=== PATIENT | male | born 1965 | race African-American/Black ===

== ENCOUNTER → 2018-01-17 | Outpatient (CLI) | payer OTHER ==
[~2018-01-17] MED LIST: BUPIVACAINE MPF 0.25% 10 ML VIAL. ONE; IOHEXOL 180 MG/ML 10 ML VIAL. ONE; METO50TA6 PO; NAPR-514 PO; PRED2.5T PO; TRIA1CAP3 PO; methylPREDNISolone ACETATE 80 MG/ML VIAL. ONE
--- NOTE | 2018-01-17 18:34 | PAIN ---
DATE OF SERVICE: 01/17/2018 INITIAL CONSULTATION FOR PAIN CLINIC CHIEF COMPLAINT: Left knee pain. HISTORY OF PRESENT ILLNESS: This is a 52-year-old male who presents with history of pain for about 3 years, increasing with walking, standing and changing positions. The patient reports he had an injection in his knee about a year ago, which helped significantly almost for a year. The patient reports he has a history of torn meniscus and has had bilateral knee scopes in the past, which were helpful as well. The patient reports the pain is worse with standing, walking and changing position, especially with standing from a chair or stepping up a stair or on a curb with putting all his weight on his left knee. The patient reports it awakens him from sleep about twice at night when he turns over or rolls on to his left side. It does not affect his bowel or bladder control, but does affect his ability to walk significantly. He is not using any assistive devices; however, the patient has tried physical therapy in the past as well as doing exercises on his own and injections in the knee, which have helped significantly. The patient reports the pain is not constant. Describes as aching and sometimes sharp, stabbing and throbbing in the left knee, again with weightbearing and sitting down. The pain is almost completely relieved, though he is lying down and twist his knee and the pain returns, sometimes sharp and shooting and electrical and stabbing at times. The patient rates his disability rating from 0-10, 10 being the worst, is a 5 with family and home responsibilities and social activity and self-care, 10 with recreational activities, 7 with occupation, 4 with sexual behavior, 2 with life support activities. The patient did have plain films, which showed no acute changes on his knee with only some mild osteoarthritis noted. The patient reports no loss of motor function, but significant fatigability with the left leg when he is walking secondary to the pain, especially on the hill or stairs. PAST MEDICAL HISTORY: Significant for hypertension, arthritis, and cigarette smoking, quit 5 years ago. PREVIOUS SURGERIES: Include bilateral knee scopes, nasal reconstruction, right shoulder surgery, right Achilles tendon repair. CURRENT MEDICATIONS: Include prednisone 5 mg daily, Naprosyn, metoprolol and hydrochlorothiazide. ALLERGIES: The patient has no known drug allergies. FAMILY HISTORY: Significant for cancers. SOCIAL HISTORY: The patient drinks alcohol about 6 beers a week on average. Does not smoke, quit 5 years ago. Does not use any illegal, illicit or recreational drugs. He is single. Lives locally in [place], [place]. REVIEW OF SYSTEMS: The patient's review of systems is positive for those items mentioned in history of present illness. All systems reviewed and otherwise negative. It is complete, full and well documented on the patient's chart. PHYSICAL EXAMINATION: VITAL SIGNS: The patient's blood pressure is 140/86, pulse 59, respirations 18, temperature 98.5 degrees Fahrenheit, height is 6 feet, weight is 282 pounds. GENERAL: The patient is awake, alert, oriented, appropriate, very pleasant demeanor. HEENT: Head shows normocephalic, atraumatic. Extraocular movements are intact and symmetrical. Oral cavity: Mucous membranes are moist and pink. Dentition is intact. NECK: Shows anterior throat supple without palpable lymphadenopathy noted. Swallow reflex is symmetrical. CHEST: Shows normal on inspection. Breath sounds are clear to auscultation bilaterally. HEART: Shows S1, S2 clear. No murmurs auscultated. ABDOMEN: Soft, nontender, nondistended. No palpable organomegaly is noted. No rebound or guarding demonstrated. BACK: Shows spine grossly in the midline. Normal appearing thoracic kyphosis and lumbar lordotic curvature. Lumbar paraspinous muscle shows symmetrical on inspection and nontender to palpation. The patient has full rotational motion of lumbar spine as well as the thoracic spine and cervical spine, both laterally as well as extension and flexion without difficulty or pain reported. No tenderness over the sacrum or sacroiliac regions. EXTREMITIES: The patient's lower extremities show deep tendon reflexes 2+ in the patellar and tendo calcaneus tendons are 1+. Motor exam is strong with 5/5 dorsiflexion, extension, quadriceps and hamstring flexion and equal bilaterally. Peripheral pulses are 1+ posterior tibia. No peripheral edema is noted. The patient's left knee and right knee shows some previous endoscopic surgical scars, but no abnormalities, no obvious swelling left knee compared to right knee, mildly tender in the medial collateral ligament with palpation directly, but not on the lateral aspect. No tenderness over the patellar tendon. Patella is mobile and nontender with palpation. No shelf sign. Range of motion is full without crepitus or ratcheting and without significant pain with passive motion. Right side remains nontender as well and normal exam on the right knee. The patient is able to stand, stand on his toes without difficulty or loss of balance, even a few steps walking, the patient does report some mild pain in the left knee. SKIN: Shows warm and dry. Good turgor. No edema. No sores, rashes or bruising. IMPRESSION: 1. This is a 52-year-old male with approximate 3 year history of left knee pain with history of meniscal tear. 2. Osteoarthritis. 3. Hypertension. PLAN: Options were discussed with the patient including conservative medical management, physical therapies, and interventional techniques. He would like to pursue interventional techniques as he has done well with these in the past. Risks were discussed. We discussed an intraarticular knee joint injection. Risks were discussed including but not limited to bleeding, infection, possibility of intravascular injection sequelae, spread of local anesthetic and numbness, side effects of steroid medication as well as exposure to fluoroscopy and poor results regarding pain control. The patient understands and wished to proceed. The patient will return to the clinic in approximately 1 month or as necessary, was counseled as to activity level as well as followup and side effects to be aware of. DIAGNOSES: Left knee joint pain with primary osteoarthritis, left knee joint and meniscal tear, left knee joint. PROCEDURE: Intra-articular left knee joint injection using C-arm fluoroscopic guidance under sterile prep and drape using local anesthetic. MEDICATION INJECTED: A total of 80 mg of Depo-Medrol plus 3 mL of 0.25% bupivacaine and 2 mL of Isovue for contrast. CONDITION AT DISCHARGE: Stable. The patient tolerated the procedure well, had no complications. KESHIA BARRIENTOS MD DR: HERACLIO/igor JOB#: [id number] / [id number]
== END | disposition home or self-care (01) ==
LOC: PNCL 12:44
PROVIDERS: ATTEND Anesthesiology
DX: M17.12 Unilateral primary osteoarthritis, left knee (principal); I10 Essential (primary) hypertension; Z87.891 Personal history of nicotine dependence; Z98.890 Other specified postprocedural states; Z79.899 Other long term (current) drug therapy; Z72.89 Other problems related to lifestyle
CPT/HCPCS: 20610; 77002; J1040; J3490; Q9965

== ENCOUNTER → 2018-03-26 | Outpatient (CLI) | payer OTHER ==
--- NOTE | 2018-03-26 10:32 | PAIN ---
DATE OF SERVICE: 03/26/2018 PROGRESS NOTE FOR PAIN CLINIC DIAGNOSES: Left knee joint pain with primary osteoarthritis, left knee joint. HISTORY OF PRESENT ILLNESS: The patient is a 52-year-old male who returns for followup status post left knee joint injections, last seen 01/17/2018. The patient did very well with at least 50% or better improvement in his knee pain with walking, standing, change in positions and has been increasing his activity with greater ease and comfort, so he is doing more activities home activities, walking and traveling better. The patient reports it is aching and sharp, now returning, mostly in the medial aspect of the left knee. The patient reports it is a 2 on a scale of 10 at its worst, average and at its least and is a 2 today. The patient reports no new motor or sensory deficits or other complaints. PHYSICAL EXAMINATION: VITAL SIGNS: The patient's blood pressure 123/80, pulse 72, respirations 18 and temperature 98.8 degrees Fahrenheit. Weight is 283 pounds. GENERAL: The patient is awake, alert, oriented, appropriate and very pleasant demeanor. HEENT: Head shows normocephalic and atraumatic. Extraocular movements are intact and symmetrical. Oral cavity: Mucous membranes moist and pink. Dentition is intact. NECK: Shows anterior throat supple without palpable lymphadenopathy noted. Swallow reflex is symmetrical. CHEST: Shows normal on inspection. Breath sounds are clear to auscultation bilaterally. HEART: Shows S1 and S2 clear. No murmurs auscultated. ABDOMEN: Soft, nontender and nondistended. No palpable organomegaly is noted. No rebound or guarding demonstrated. BACK: Shows spine grossly in the midline. Normal appearing thoracic kyphosis and lumbar lordotic curvature. The patient's lower extremities show deep tendon reflexes 2+ in the patellar and 1+ tendo-calcaneus tendons are equal. Motor exam is strong with 5/5 dorsiflexion, extension, quadriceps and hamstring flexion. The patient's left knee shows good mobility of the patella without significant pain. No shelf sign. No ratcheting with good rotational motion in hinged fashion on the left knee without crepitus or ratcheting or significant pain with passive motion. Peripheral pulses are 1+ posterior tibia. No peripheral edema is noted in bilateral lower extremities. Options were discussed with the patient. The patient's old chart was reviewed as well as his current medication regimen updated. Current review of systems updated today as well and we will proceed with a second intraarticular knee joint injection on the left knee today with fluoroscopic guidance. Risks were again discussed including, but not limited to bleeding, infection, possibility of intravascular injection sequelae, spread of local anesthetic and numbness, side effects of steroid medication, exposure to fluoroscopy and poor results regarding pain control. The patient understands and wished to proceed. The patient will return to the clinic in approximately 2 weeks for followup, was counseled as to return appointment, activity level and side effects to be aware of. DIAGNOSIS: Primary osteoarthritis, left knee joint with left knee joint pain. PROCEDURES: Left intra-articular knee joint injection using C-arm fluoroscopic guidance under sterile prep and drape using local anesthetic. MEDICATION INJECTED: A total of 80 mg of Depo-Medrol plus 3 mL of 0.25% bupivacaine and 1.5 mL Isovue for contrast. CONDITION AT DISCHARGE: Stable. The patient tolerated the procedure well and had no complications. KESHIA BARRIENTOS MD DR: HERACLIO/igor JOB#: [id number] / [id number]
== END | disposition home or self-care (01) ==
LOC: PNCL 07:33
PROVIDERS: ATTEND Anesthesiology
DX: M17.12 Unilateral primary osteoarthritis, left knee (principal)
CPT/HCPCS: 20610; 77002; J1040; J3490; Q9965

== ENCOUNTER → 2018-06-14 | Outpatient (CLI) | payer OTHER ==
[~2018-06-14] MED LIST changes: +ATOR10TA60 PO
--- NOTE | 2018-06-14 20:29 | PAIN ---
DATE OF SERVICE: 06/14/2018 DIAGNOSIS: Left knee joint pain with primary osteoarthritis. HISTORY OF PRESENT ILLNESS: The patient is a 52-year-old male who returns for a followup status post left knee joint injection on 03/26/2018. The patient did very well with about a 75% improvement in the left knee. The patient reports he has been doing well until about a week ago, pain began to return without any specific injury or accident, just increasing pain with walking, standing. Otherwise before that, he was doing great with walking much improved, doing household and work activities, traveling with greater ease and comfort. The patient reports the pain just began to return about a week ago with weightbearing, standing on his left leg, stepping up, climbing the stairs, putting all his weight on his left side. The patient reports it is aching, also sharp, tight. It is a 9 on a scale of 10 on average, 9 at its worst, 6 at its least and is a 9 today. The patient reports no new motor or sensory deficits, no new bowel or bladder incontinence or other complaints. PHYSICAL EXAMINATION: VITAL SIGNS: Today, the patient's blood pressure 147/94, pulse 61, respirations 16, temperature is 98.3 degrees Fahrenheit, weight is 277 pounds. GENERAL: The patient is awake, alert, oriented, appropriate, has a very pleasant demeanor. HEENT: Shows normocephalic, atraumatic. Extraocular movements are intact, symmetrical. Oral cavity shows mucous membranes moist and pink. Dentition is intact. NECK: Shows anterior throat supple without palpable lymphadenopathy noted. Swallow reflex symmetrical. CHEST: Shows normal on inspection. Breath sounds are clear to auscultation bilaterally. HEART: Shows S1, S2 clear. No murmurs auscultated. ABDOMEN: Soft, nontender, nondistended. No palpable organomegaly is noted. No rebound or guarding demonstrated. MUSCULOSKELETAL: Back shows spine grossly in the midline, normal appearing thoracic kyphosis and lumbar lordotic curvature. Lower extremities show deep tendon reflexes 2+ in the patellar, 1+ tendo-calcaneus tendons. Motor exam is strong with 5/5 dorsiflexion, extension, quadriceps and hamstring flexion. The patient's left knee shows good range of motion with hinge motion both anteriorly as well as flexion and extension without significant crepitus or ratcheting. Peripheral pulses are 1+, posterior tibia. No peripheral edema is noted. PLAN: Options were discussed with the patient. The patient's old chart was reviewed as his current medication regimen and updated. Current review of systems updated today as well and we will proceed with a repeat left intraarticular knee joint injection using fluoroscopic guidance. Risks were again discussed including, but not limited to bleeding, infection, possibility of intravascular injection sequelae, spread of local anesthetic and numbness, side effects of steroid medication, exposure to fluoroscopy and poor results regarding pain control. The patient understands and wished to proceed. The patient will return to clinic in approximately 1 month for a followup, was counseled on return appointment, activity level and side effects to be aware of. DIAGNOSIS: Left knee joint pain with primary osteoarthritis of left knee joint. PROCEDURES: Left intraarticular knee joint injection using C-arm fluoroscopic guidance under sterile prep and drape using local anesthetic. MEDICATION INJECTED: A total of 80 mg Depo-Medrol plus 3 mL of 0.25% bupivacaine and 1.5 mL of contrast. CONDITION AT DISCHARGE: Stable. The patient tolerated the procedure well, had no complications. KESHIA BARRIENTOS MD DR: EHRACLIO/igor JOB#: [id number] / [id number]
== END | disposition home or self-care (01) ==
LOC: PNCL 08:14
PROVIDERS: ATTEND Anesthesiology
DX: M17.12 Unilateral primary osteoarthritis, left knee (principal)
CPT/HCPCS: 20610; 77002; J1040; J3490; Q9965